=== PATIENT | male | born 1980 | race American Indian/Alaskan Native ===

== ENCOUNTER 2016-06-12 07:19 | Emergency (ER) | payer OTHER ==
[2016-06-12 08:25] LABS: Basophils % (Auto) 0.3 % (0.0-1.8); Eosinophils % (Auto) 0.2 % (0.0-4.3); Hematocrit 46.1 % (35.5-45.6); Mean Corpuscular HGB Conc 33 % (32-34); Mean Corpuscular Hemoglobin 30 pg (28-32); Mean Corpuscular Volume 91 fl (84-94); Platelet Count 222 K/mm3 (140-440); Red Blood Count 5.05 M/mm3 (3.65-5.03); Red Cell Distribution Width 12.9 % (13.2-15.2); White Blood Count 15.6 K/mm3 (4.5-11.0)
[2016-06-12 08:35] LABS: Albumin 4.1 g/dL (3.9-5); Albumin/Globulin Ratio 1.2 %; BUN/Creatinine Ratio 8.26; Bilirubin,Total 0.5 mg/dL (0.1-1.2); Calcium 9.8 mg/dL (8.4-10.2); Chloride 100.5 mmol/L (98-107); Potassium 4.8 mmol/L (3.6-5.0); Total Protein 7.6 g/dL (6.3-8.2)
[2016-06-12 08:53] LABS: Bacteria,Urine 1+ /HPF (Negative); Bilirubin,Urine NEG (Negative); Blood,Urine LG (Negative); Ketones,Urine NEG (Negative); Leukocyte Esterase,Urine SM (Negative); Mucus,Urine FEW /HPF; Nitrite,Urine NEG (Negative); Urobilinogen,Urine < 2.0 mg/dL (<2.0)
--- NOTE | 2016-06-12 09:53 | Emergency Department Report ---
Entered by MIGUEL ANGEL CARRANZA, acting as scribe for AIDA MARIN NP. Chief Complaint: Abdominal Pain Stated Complaint: PAIN/LOWER L SIDE Time Seen by Provider: 06/12/16 09:42 - HPI History of Present Illness: 35 y/o male c/o stinging, constant, lower left side abd pain that started 3 days ago. Associated Sx include vomiting but denies pain wih urinating or blood in urine. Denies ever passing kidney stone previously - ROS Review of Systems: +vomiting -dysuria -hematuria - Exam Vital Signs: Vital Signs 06/12/16 07:34 Temperature 98.6 F Pulse Rate 74 Respiratory 17 Rate Blood Pressure 133/85 O2 Sat by Pulse 98 Oximetry Physical Exam: no left cva tenderness, c/o left side pain pt c/o L side pain and appears uncomfortable MSE screening note: Focused history and physical exam performed. Due to findings the following was ordered: labs reviewed urine culture ordered and ct abd/ pelvis ED Medical Decision Making - Lab Data Result diagrams: 06/12/16 08:06 06/12/16 08:06 ED Disposition for MSE Condition: Stable Referrals: PRIMARY CARE, [Primary Care Provider] - 3-5 Days This documentation as recorded by the scribeTERE RYAN,accurately reflects the service I personally performed and the decisions made by TANIA mcleod TRACY M , SCRAP HOOKER.
--- NOTE | 2016-06-12 10:25 | Cat Scan Report ---
CT OF THE ABDOMEN AND PELVIS WITHOUT CONTRAST HISTORY: Left flank pain, hematuria. TECHNIQUE: Helical CT without contrast. Sagittal and coronal reformatted images. FINDINGS: A 3 mm calculus is located at the left UVJ. There is mild left hydronephrosis. A 3 mm calyceal stone is identified in the mid right kidney. No other nephrolithiasis. The kidneys and bladder are within normal limits otherwise. Within the limits of a noncontrast exam, the remaining abdominal and pelvic viscera are within normal limits. The liver, biliary system, pancreas, spleen, and adrenal glands are unremarkable. The bowel loops are normal caliber and wall thickness. Normal appendix. The aorta is normal caliber. No ascites, bulky adenopathy or inflammatory changes. The lung bases are clear. Normal heart size. No suspicious bony lesion. IMPRESSION: 3 mm ureteral stone at the left UVJ, mildly obstructing. 3 mm nonobstructing right renal stone.
[2016-06-12] MEDS: NACL 0.9% 1000 ML 1,000 ML IV ONE ×2 (10:45→12:20)
--- NOTE | 2016-06-12 10:54 | Emergency Department Report ---
ED Abdominal Pain HPI - General Chief Complaint: Abdominal Pain Stated Complaint: PAIN/LOWER L SIDE Time Seen by Provider: 06/12/16 09:42 Source: patient Mode of arrival: Ambulatory Limitations: No Limitations - History of Present Illness MD Complaint: flank pain -: Sudden Location: LUQ, LLQ Radiation: none Migration to: no migration Severity: moderate Severity scale (0 -10): 3 Quality: stabbing, sharp Consistency: colicky Improves With: nothing Worsens With: nothing Associated Symptoms: nausea, vomiting. denies: diarrhea, fever, chills, constipation, dysuria, hematemesis, hematochezia, melena, hematuria, anorexia - Related Data Previous Rx's Medication Instructions Recorded Last Taken Type Diclofenac Potassium 50 mg PO BID #14 tablet 06/12/16 Unknown Rx Allergies Allergy/AdvReac Type Severity Reaction Status Date / Time No Known Allergies Allergy Unverified 06/12/16 07:31 ED Review of Systems ROS: Stated complaint: PAIN/LOWER L SIDE Other details as noted in HPI Constitutional: denies: chills, fever Eyes: denies: eye pain, eye discharge, vision change ENT: denies: ear pain, throat pain Respiratory: denies: cough, shortness of breath, wheezing Cardiovascular: denies: chest pain, palpitations Endocrine: no symptoms reported Gastrointestinal: abdominal pain. denies: nausea, diarrhea Genitourinary: denies: urgency, dysuria Musculoskeletal: denies: back pain, joint swelling, arthralgia Skin: denies: rash, lesions Neurological: denies: headache, weakness, paresthesias Psychiatric: denies: anxiety, depression Hematological/Lymphatic: denies: easy bleeding, easy bruising ED Past Medical Hx - Past Medical History Previous Medical History?: No - Surgical History Additional Surgical History: hernia repair. right testicle removed - Social History Smoking Status: Never Smoker Substance Use Type: None - Medications Home Medications: Home Medications Medication Instructions Recorded Confirmed Last Taken Type Diclofenac Potassium 50 mg PO BID #14 tablet 06/12/16 Unknown Rx ED Physical Exam - General Limitations: No Limitations General appearance: alert, in no apparent distress - Head Head exam: Present: atraumatic, normocephalic - Eye Eye exam: Present: normal appearance - ENT ENT exam: Present: mucous membranes moist - Neck Neck exam: Present: normal inspection - Respiratory Respiratory exam: Present: normal lung sounds bilaterally. Absent: respiratory distress - Cardiovascular Cardiovascular Exam: Present: regular rate, normal rhythm. Absent: systolic murmur, diastolic murmur, rubs, gallop - GI/Abdominal GI/Abdominal exam: Present: soft, tenderness (llQ, left flank tenderness / CVA tenderness), normal bowel sounds. Absent: distended - Rectal Rectal exam: Present: deferred - exam: Present: normal inspection. Absent: testicular tenderness, urethral discharge, scrotal swelling, vertical testicular lie - Extremities Exam Extremities exam: Present: normal inspection - Back Exam Back exam: Present: normal inspection - Neurological Exam Neurological exam: Present: alert, oriented X3 - Psychiatric Psychiatric exam: Present: normal affect, normal mood - Skin Skin exam: Present: warm, dry, intact, normal color. Absent: rash ED Course Vital Signs 06/12/16 06/12/16 06/12/16 07:34 10:52 10:53 Temperature 98.6 F Pulse Rate 74 77 Respiratory 17 16 16 Rate Blood Pressure 133/85 Blood Pressure 136/77 [Left] O2 Sat by Pulse 98 100 100 Oximetry 06/12/16 11:10 Temperature Pulse Rate Respiratory 16 Rate Blood Pressure Blood Pressure [Left] O2 Sat by Pulse Oximetry ED Medical Decision Making - Lab Data Result diagrams: 06/12/16 08:06 06/12/16 14:06 - Radiology Data Radiology results: report reviewed, image reviewed - Medical Decision Making Patient doing well, better after ivf and pain meds , ct with stone at l UVJ, no need for urology at this time , creatinine was repeated and slight better, will dc and follow Critical care attestation.: If time is entered above; I have spent that time in minutes in the direct care of this critically ill patient, excluding procedure time. ED Disposition Clinical Impression: Ureter colic Disposition: DISCHARGED TO HOME OR SELFCARE Is pt being admited?: No Does the pt Need Aspirin: No Condition: Good Prescriptions: Diclofenac Potassium 50 mg PO BID #14 tablet Referrals: PRIMARY CARE, [Primary Care Provider] - 3-5 Days Forms: Work/School Release Form(ED) Time of Disposition: 14:56
[2016-06-12] MEDS: ZOFRAN IV ONE (11:09)
[2016-06-12] MEDS: TORADOL IV ONE (11:10)
[2016-06-12] MEDS: NORCO 5/325 PO ONE (11:12)
[2016-06-12] MEDS: ZOFRAN ODT PO ONE (11:17)
[2016-06-12 13:26] LABS: Creatine Kinase MB 1.4 ng/mL (0.0-4.0)
--- NOTE | 2016-06-12 13:55 | Admit Criteria Form ---
Admission Criteria Documentation: RENAL COLIC AND KIDNEY STONES Clinical Indications for Admission to Inpatient Care ( Place 'X' for any and all applicable criteria): Admission is indicated for ANY ONE of the following (1)(2)(3)(4): [X ]I. Inpatient admission required rather than observation care (Also use Renal Colic and Kidney Stones: Observation Care Criteria as appropriate) because of ANY ONE of the following: [X ]a) Severe pain requiring acute inpatient management [ ]b) Urinary tract infection identified [ ]c) Vomiting that is severe or persistent [ ]d) IV fluid required rather than oral rehydration to replace significant ongoing (eg, for greater than 24 hours) losses (greater than 200 mL/hr or 3 L/m2 per day) [ ]e) Percutaneous or open drainage (eg, abscess, biliary tract) procedures [ ]f) Other condition, treatment or monitoring requiring inpatient admission [ ]II. Impending acute renal failure [ ]III. Bilateral obstruction [ ]IV. Single kidney with obstruction [ ]V. Transplanted kidney with obstruction [ ]. Possible open surgical procedure needed (eg, pyonephrosis, stone removal not amendable to other means) [ ]VII. Hemodynamic instability Extended stay beyond goal length of stay may be needed for(2)(3)(31): [ ]a) Failed initial stone removal (32) [ ]b) Pyonephrosis [ ]c) Obstructive uropathy with urinary tract infection [ ]d) Procedure complications [ ]e) Comorbidities (22) The original [facility] content created by [employer] has been revised. The portions of the content which have been revised are identified through the use of italic text or in bold, and [facility] has neither reviewed nor approved the modified material. All other unmodified content is copyright [employer]. Please see references footnoted in the original [employer] edition 2016
[2016-06-12 14:39] LABS: BUN/Creatinine Ratio 8.18; Calcium 8.1 mg/dL (8.4-10.2); Chloride 104.7 mmol/L (98-107)
[2016-06-12] MEDS: MORPHINE IV ONE (15:15)
[2016-06-12 15:59] VITALS: BP 112/65
== END 2016-06-12 16:00 | disposition home or self-care (01) ==
LOC: ED 07:19
DX: N23 Unspecified renal colic (principal)
CPT/HCPCS: 36415; 74176; 80048; 80053; 81001; 82550; 82553; 83690; 85025; 87086; 96361; 96374; 96375; 99284; J1885; J2405; J7030; Q0162

== ENCOUNTER 2017-11-24 01:51 | Emergency (ER) | payer OTHER ==
[2017-11-24] MEDS ORDERED: ZOFRAN ONE (03:53)
[2017-11-24] MEDS ORDERED: TORADOL ONE (03:54)
[2017-11-24] MEDS ORDERED: ZOFRAN IV ONE ×2 (04:11→10:15)
[2017-11-24] MEDS ORDERED: TORADOL IV ONE (04:11)
[2017-11-24 04:39] LABS: Basophils % (Auto) 0.4 % (0.0-1.8); Eosinophils # (Auto) 0.1 K/mm3 (0.0-0.4); Eosinophils % (Auto) 0.5 % (0.0-4.3); Hematocrit 45.5 % (35.5-45.6); Hemoglobin 15.5 gm/dl (11.8-15.2); Lymphocytes % (Auto) 7.5 % (13.4-35.0); Mean Corpuscular HGB Conc 34 % (32-34); Mean Corpuscular Hemoglobin 31 pg (28-32); Mean Corpuscular Volume 90 fl (84-94); Monocytes # (Auto) 0.6 K/mm3 (0.0-0.8); Monocytes % (Auto) 4.2 % (0.0-7.3); Platelet Count 268 K/mm3 (140-440); Red Blood Count 5.05 M/mm3 (3.65-5.03); Red Cell Distribution Width 12.6 % (13.2-15.2)
[2017-11-24 04:44] LABS: Bilirubin,Urine NEG (Negative); Blood,Urine SM (Negative); Color,Urine Yellow (Yellow); Protein,Urine <15 mg/dL mg/dL (Negative); Urobilinogen,Urine < 2.0 mg/dL (<2.0)
[2017-11-24 04:52] LABS: BUN/Creatinine Ratio 10; Blood Urea Nitrogen 14 mg/dL (9-20); Calcium 9.9 mg/dL (8.4-10.2); Hemolysis Index 11
--- NOTE | 2017-11-24 08:21 | Cat Scan Report ---
FINAL REPORT EXAM: CT ABDOMEN PELVIS WO CON HISTORY: Right flank pain TECHNIQUE: CT images obtained through the Abdomen and Pelvis without contrast. Transaxial,coronal and sagittal reformats are provided. PRIORS: None. FINDINGS: Imaged intrathoracic contents are unremarkable. Mild edematous enlargement of the right kidney in [id number] hydroureteronephrosis due to a 4 millimeter stone in the ureterovesical junction on axial series 2, image 149. No additional stones in the right or left collecting systems, and no left-sided hydroureteronephrosis. No free fluid in the pelvis. Pelvic phleboliths are noted. A few scattered low-density lesions in the liver measuring up to 12 millimeters most likely represent benign cysts. The liver, gallbladder, pancreas, spleen, and adrenal glands otherwise demonstrate an unremarkable noncontrast appearance. Hollow enteric organs are normal in course and caliber. Appendix is normal. No intra-abdominal free air/fluid or lymphadenopathy. Aorta is normal in course and caliber. Superficial soft tissues are unremarkable. No acute or aggressive appearing skeletal findings. IMPRESSION: Mild to moderate right hydroureteronephrosis due to a 4 millimeter obstructive stone in the ureterovesical junction.
--- NOTE | 2017-11-24 09:50 | Emergency Department Report ---
HPI - General Chief Complaint: Abdominal Pain Time Seen by Provider: 11/24/17 09:31 - HPI HPI: The patient is a 37m -year-old male who presents for evaluation of right flank pain. The patient reports right flank pain since 1 PM yesterday, nearly 24 hours ago, constant since onset, sharp in quality, radiating to the right lateral abdomen, moderate in severity. The patient missed a history of kidney stones in the past. The patient denies fever, chills, night sweats, diarrhea, blood in the stool, dark tarry stool, genital discharge, inability to pass flatus. ED Past Medical Hx - Past Medical History Hx Kidney Stones: Yes - Surgical History Additional Surgical History: hernia repair. right testicle removed - Social History Smoking Status: Never Smoker Substance Use Type: None - Medications Home Medications: Home Medications Medication Instructions Recorded Confirmed Last Taken Type Diclofenac Potassium 50 mg PO BID #14 tablet 06/12/16 Unknown Rx HYDROcodone/APAP 7.5-325 [[place] 1 each PO Q8HR PRN #20 tablet 11/24/17 Unknown Rx 7.5-325 mg TAB] Ondansetron [Zofran TAB] 4 mg PO Q8HR PRN #20 tablet 11/24/17 Unknown Rx Tamsulosin [Flomax] 0.4 mg PO QDAY #10 cap 11/24/17 Unknown Rx ED Review of Systems ROS: Stated complaint: ABDOMINAL PAIN Other details as noted in HPI Constitutional: denies: fever ENT: denies: throat or neck pain Respiratory: denies: cough, shortness of breath Cardiovascular: denies: chest pain Endocrine: denies unexplained weight loss or gain Gastrointestinal: denies: abdominal pain, nausea Genitourinary: reports flank pain Musculoskeletal: denies: leg swelling Skin: denies: rash Neurological: denies: headache Hematological/Lymphatic: denies: easy bleeding or easy bruising Psych: denies sadness or hopelessness Physical Exam - Physical Exam Vital Signs: Vital Signs 11/24/17 11/24/17 04:07 08:26 Temperature 98.1 F 97.8 F Pulse Rate 74 86 Respiratory 16 20 Rate Blood Pressure 130/80 Blood Pressure 125/75 [Left] O2 Sat by Pulse 97 100 Oximetry Physical Exam: General: well-nourished, well-developed, no acute distress Head: Normocephalic, atraumatic Eyes: normal sclera ENT: Mucous membranes are pink and moist Neck: trachea midline, neck supple, No neck stiffness, no cervical adenopathy Respiratory: Breath sounds equal bilaterally, no wheezing, rales, or rhonchi Cardio: S1 and S2 present, no murmurs, rubs, gallops, capillary refill is brisk Abdomen: Normoactive bowel sounds, soft abdomen, right lateral abdominal tenderness present, no pain in McBurney's point, Thomas sign negative, no rigidity, no guarding or rebound tenderness Chest WALL/Back: Right CVA tenderness with percussion present Musc: No pitting edema Skin: No rash Neuro: no facial drooping, normal speech Psych: Normal affect ED Course Vital Signs 11/24/17 11/24/17 04:07 08:26 Temperature 98.1 F 97.8 F Pulse Rate 74 86 Respiratory 16 20 Rate Blood Pressure 130/80 Blood Pressure 125/75 [Left] O2 Sat by Pulse 97 100 Oximetry ED Medical Decision Making - Lab Data Result diagrams: 11/24/17 04:15 11/24/17 04:15 - Medical Decision Making The patient was seen and examined by myself. The patient is placed on a cardiac technologist and continuous pulse ox. On initial evaluation, the patient was found to be in no distress. Evaluation orders are placed. IV access is established and the patient is given 1 L normal saline fluid bolus and Zofran for nausea, and IV Toradol for pain. Lab results exhibited low-grade leukocytosis, WBC 13, and mildly elevated urinalysis WBC with positive leukocyte esterase, consistent with acute urinary tract infection. Creatinine level within normal limit. CT scan of the abdomen and pelvis revealed right ureterolithiasis, 4mm. the patient is given IV fentanyl for pain and IV Rocephin for treatment of his UTI. The patient was reevaluated and reported that their symptoms were markedly improved. The patient is stable for discharge with outpatient follow-up. The patient is given follow-up with urology and return instructions. The patient expressed understanding and agreed with the plan. The patient is discharged in stable condition. Critical care attestation.: If time is entered above; I have spent that time in minutes in the direct care of this critically ill patient, excluding procedure time. ED Disposition Clinical Impression: Ureterolithiasis, Acute lower UTI (urinary tract infection), Acute right flank pain Disposition: DC-01 TO HOME OR SELFCARE Is pt being admited?: No Does the pt Need Aspirin: No Condition: Stable Instructions: Kidney Stones (ED), Urinary Tract Infection in Men (ED), How to Strain Your Urine (ED) Prescriptions: HYDROcodone/APAP 7.5-325 [[place] 7.5-325 mg TAB] 1 each PO Q8HR PRN #20 tablet PRN Reason: Pain Ondansetron [Zofran TAB] 4 mg PO Q8HR PRN #20 tablet PRN Reason: Nausea Tamsulosin [Flomax] 0.4 mg PO QDAY #10 cap Referrals: ARLETTE FITZGERALD MD [Staff Physician] - 3-5 Days NISREEN PAEZ MD [Staff Physician] - 3-5 Days Time of Disposition: 09:50
[2017-11-24] MEDS ORDERED: SUBLIMAZE IV ONE (10:15)
[2017-11-24] MEDS ORDERED: NACL 0.9% 1000 ML 1,000 ML IV ONE (10:16)
[2017-11-24] MEDS ORDERED: ROCEPHIN/NS 1 GM/50 ML 1 GM/50 ML BAG IV ONE (11:00)
[2017-11-24 14:22] VITALS: BP 124/78
== END 2017-11-24 13:00 | disposition home or self-care (01) ==
LOC: ED 01:51
DX: N20.1 Calculus of ureter (principal); N39.0 Urinary tract infection, site not specified
CPT/HCPCS: 36415; 74176; 80048; 81001; 85025; 96365; 96375; 96376; 99284; J0696; J1885; J2405; J3010; J7030

== ENCOUNTER 2019-02-03 08:57 | Emergency (ER) | payer SELFPAY ==
[2019-02-03] MEDS ORDERED: predniSONE 20 MG TAB PO ONE (11:04)
[2019-02-03] MEDS ORDERED: IBUPROFEN 800 MG TAB PO ONE (11:04)
[2019-02-03] MEDS ORDERED: ALBUTEROL 2.5 MG/3 ML NEBU IH ONE (11:04)
--- NOTE | 2019-02-03 11:07 | Emergency Department Report ---
Minor Respiratory - HPI Chief Complaint: Upper Respiratory Infection Stated Complaint: FLU SX Time Seen by Provider: 02/03/19 10:57 Duration: 2 Days Pain Location: Facial, Throat, Nose, Ear, Chest Severity: mild Minor Respiratory: Yes Rhinorrhea, Yes Able to Tolerate Fluids, Yes Cough, No Sore Throat, No Ear Pain, No Sick Contacts, No Hemoptysis, No Chest Pain, No Shortness of Breath, No Fever Other History: 38 yo AA male comes to ER wit 2 day hx of headache, face pain, and cough. Denies fever. Did not see pcp. took otc nyquil with no relief ED Review of Systems ROS: Stated complaint: FLU SX Other details as noted in HPI Comment: All other systems reviewed and negative ED Past Medical Hx - Past Medical History Previous Medical History?: Yes Hx Kidney Stones: Yes - Surgical History Past Surgical History?: Yes Additional Surgical History: hernia repair. right testicle removed - Family History Family history: no significant - Social History Smoking Status: Never Smoker Substance Use Type: None - Medications Home Medications: Home Medications Medication Instructions Recorded Confirmed Last Taken Type Azithromycin [Zithromax Z-JALIL] 250 mg PO DAILY #6 tablet 02/03/19 Unknown Rx Benzonatate [Tessalon Perles] 100 mg PO Q12H PRN #20 capsule 02/03/19 Unknown Rx Cetirizine HCl [ZyrTEC] 10 mg PO DAILY #30 capsule 02/03/19 Unknown Rx Fluticasone [Flonase] 1 spray NS QDAY #1 bottle 02/03/19 Unknown Rx predniSONE [Deltasone] 20 mg PO DAILY #5 tablet 02/03/19 Unknown Rx Minor Respiratory Exam - Exam General: Vital signs noted. No distress. Alert and acting appropriately. HEENT: Yes Pharyngeal Erythema, Yes Moist Mucous Membranes, Yes Frontal Ten derness, Yes Maxillary Tenderness, No Pharyngeal Exudates, No Rhinorrhea, No Conjuctival Injection Ear: Neither TM Bulge, Neither TM Erythema, Neither EAC Pain, Neither EAC Di scharge Neck: Yes Supple, No Adenopathy Lungs: Yes Good Air Exchange, Yes Wheezes, Yes Cough, No Ronchi, No Stridor, No Labored Respirations, No Retractions, No Use of Accessory Muscles, No Other Abnormal Lung Sounds Heart: Yes Regular, No Murmur Abdomen: Yes Normal Bowel Sounds, No Tenderness, No Peritoneal Signs Skin: No Rash, No Edema Neurologic: Alert and oriented, no deficits. Musculoskeletal: Unremarkable. ED Course Vital Signs 02/03/19 09:10 Temperature 98.3 F Pulse Rate 90 Respiratory 16 Rate Blood Pressure 129/66 [Right] O2 Sat by Pulse 97 Oximetry ED Medical Decision Making - Medical Decision Making URI rhonchi clear with cough mild wheezing pos sinus pain- frontal and max no fever taking po non toxic duoneb dc home with follow up with pcp Vital Signs 02/03/19 02/03/19 02/03/19 09:10 11:25 11:42 Temperature 98.3 F 98.7 F Pulse Rate 90 119 H Pulse Rate [ 92 H Anterior Bilateral Throughout] Respiratory 16 19 Rate Respiratory 18 Rate [Anterior Bilateral Throughout] Blood Pressure 117/63 Blood Pressure 129/66 [Right] O2 Sat by Pulse 97 97 Oximetry - Differential Diagnosis URI RO PNA/FLU Critical care attestation.: If time is entered above; I have spent that time in minutes in the direct care of this critically ill patient, excluding procedure time. ED Disposition Clinical Impression: Bronchitis, URI (upper respiratory infection) Disposition: DC-01 TO HOME OR SELFCARE Is pt being admited?: No Does the pt Need Aspirin: No Condition: Stable Instructions: Acute Bronchitis (ED) Additional Instructions: HYDRATE WELL MEDS ORDERED MOTRIN OR TYLENOL FOR PAIN OR FEVER FOLLOW UP WITH PCP REFERRAL BELOW Prescriptions: predniSONE [Deltasone] 20 mg PO DAILY #5 tablet Fluticasone [Flonase] 1 spray NS QDAY #1 bottle Benzonatate [Tessalon Perles] 100 mg PO Q12H PRN #20 capsule PRN Reason: Cough Azithromycin [Zithromax Z-JALIL] 250 mg PO DAILY #6 tablet Cetirizine HCl [ZyrTEC] 10 mg PO DAILY #30 capsule Referrals: RAMIRO WALL MD [Staff Physician] - 3-5 Days Forms: Work/School Release Form(ED) Time of Disposition: 11:05
[2019-02-03 12:00] VITALS: BP 117/63
== END 2019-02-03 11:45 | disposition home or self-care (01) ==
LOC: ED 08:57
DX: J40 Bronchitis, not specified as acute or chronic (principal); J06.9 Acute upper respiratory infection, unspecified; Z87.442 Personal history of urinary calculi; Z79.899 Other long term (current) drug therapy
CPT/HCPCS: 94640; 99282; J7512; 94644